=== PATIENT | male | born 1975 | race Hispanic/Latino ===

== ENCOUNTER 2021-06-04 11:35 | Inpatient (IN) | payer MEDICARE, MEDICAID ==
[2021-06-03 11:23] VITALS: BMI 26.2
[2021-06-04] MEDS ORDERED: ceFAZolin 2 GM/DEX 5% 100 ML BAG ONE (12:48)
[2021-06-04] MEDS ORDERED: Ketorolac Tromethamine 30 MG/ML VIAL ONE (12:48)
[2021-06-04] MEDS ORDERED: Acetaminophen 500 MG TAB ONE (12:48)
[2021-06-04 13:21] LABS: #Eosinphils 0.1 thou/uL (0.0-0.7); #Lymphocytes 2.1 thou/uL (1.20-3.40); #Monocytes 0.5 thou/uL (0.11-0.59); #Neutrophils 4.3 thou/uL (1.40-6.50); %Basophils 0.2 % (0.0-1.0); %Eosinophils 1.5 % (0.0-10.0); %Lymphocytes 29.8 % (21.0-51.0); %Monocytes 6.9 % (0.0-10.0); %Neutrophils 61.6 % (42.0-75.0); Hemoglobin 14.1 g/dL (14.0-18.0); Mean Corpuscular HGB CONC 32.7 g/dL (32.0-36.0); Mean Corpuscular Hemoglobin 31.6 pg (27.0-31.0); Mean Corpuscular Volume 96.4 fL (78.0-98.0); RBC Distribution Width 11.6 % (11.5-14.5); Red Blood Cell (RBC) Count 4.46 mill/uL (4.70-6.10); White Blood Cell (WBC) Count 7.1 thou/uL (4.8-10.8)
[2021-06-04 13:38] LABS: Mean Platelet Volume 11.5 fL (7.4-10.4); Platelet Count 118 thou/uL (130-400); Platelet Morphology Comment Appears Adequate; RBC Morphology Normal
[2021-06-04 13:44] LABS: Anion Gap 12 mmol/L (10-20); BUN (Urea Nitrogen) 16 mg/dL (8.9-20.6); Calc. Creatinine Clearance 111 mL/min (70-130); Calcium 9.6 mg/dL (7.8-10.44); Carbon Dioxide 28 mmol/L (22-29); Chloride 103 mmol/L (98-107); Glucose 104 mg/dL (70-105); Potassium 4.1 mmol/L (3.5-5.1); Sodium 139 mmol/L (136-145)
[2021-06-04] MEDS ORDERED: EPINEPHrine 1 MG/ML AMP ONE (13:50)
[2021-06-04] MEDS ORDERED: Fentanyl 100 MCG/2 ML VIAL ONE ×2 (13:50→14:55)
[2021-06-04] MEDS ORDERED: Bupivacaine 0.25% HCL 30 ML VIAL ONE (13:50)
[2021-06-04] MEDS ORDERED: SUGAMMADEX SODIUM 200 MG/2 ML VIAL ONE (13:58)
[2021-06-04] MEDS ORDERED: Dexamethasone 20 MG/5 ML VIAL ONE (13:59)
[2021-06-04] MEDS ORDERED: Ondansetron PF 4 MG/2 ML Vial ONE (13:59)
[2021-06-04] MEDS ORDERED: PROPOFOL 200 MG/20 ML VIAL ONE (13:59)
[2021-06-04] MEDS ORDERED: Rocuronium Bromide 10 MG/ML (10ML VIAL) ONE (13:59)
[2021-06-04] MEDS ORDERED: ePHEDrine 50 MG/ML VIAL ONE (13:59)
[2021-06-04] MEDS ORDERED: Lidocaine 1% PF 5 ML VIAL ONE (13:59)
[2021-06-04] MEDS ORDERED: Glycopyrrolate 0.2 MG/ML 5 ML SYRINGE ONE (13:59)
[2021-06-04] MEDS ORDERED: Promethazine HCl 25 MG/ML VIAL IM PRN ×2 (16:20→16:30)
[2021-06-04] MEDS ORDERED: Ondansetron HCl/PF 4 MG/2 ML Vial IVP PRN (16:20)
[2021-06-04] MEDS ORDERED: Promethazine HCl 25 MG/ML VIAL IVPB PRN (16:20)
[2021-06-04] MEDS ORDERED: Mag-Al 1200 mg/1200 mg/30 ML UDCUP PO PRN (16:30)
[2021-06-04] MEDS ORDERED: Calcium Carbonate 500 MG ChewTAB PO PRN (16:30)
[2021-06-04] MEDS ORDERED: Ondansetron PF 4 MG/2 ML Vial IVP PRN (16:30)
[2021-06-04] MEDS ORDERED: Dextrose 5% in Water 1,000 ML IV PRN (16:30)
[2021-06-04] MEDS ORDERED: Dextrose 50% Abboject 50 ML SYRINGE SLOW IVP PRN (16:30)
[2021-06-04] MEDS ORDERED: hydrALAZINE 20 MG/ML VIAL SLOW IVP PRN (16:30)
[2021-06-04] MEDS ORDERED: Morphine 4 MG/ML VIAL SLOW IVP PRN (17:03)
[2021-06-04] MEDS: Baclofen 10 MG TAB PO SCH ×3 (19:07→22:26)
[2021-06-04] MEDS: D5 1/2 NS w/20 mEq KCL 1,000 ML IV SCH (19:07)
[2021-06-04] MEDS ORDERED: Phenytoin 50 MG Chewable Tablet PO SCH (21:00)
[2021-06-04] MEDS ORDERED: PHENobarbital 32.4 MG TAB PO SCH ×2 (21:00→23:45)
[2021-06-04] MEDS: Famotidine/PF 20 mg/2ml Vial SLOW IVP SCH (21:03)
[2021-06-05] MEDS: Baclofen 10 MG TAB PO SCH ×4 (01:37→21:57)
[2021-06-05 05:28] LABS: ALT (SGPT) 74 U/L (8-55); AST (SGOT) 93 U/L (5-34); Albumin 3.4 g/dL (3.5-5.0); Alkaline Phosphatase 119 U/L (40-110); Anion Gap 12 mmol/L (10-20); BUN (Urea Nitrogen) 16 mg/dL (8.9-20.6); Bilirubin, Total 0.5 mg/dL (0.2-1.2); Calc. Creatinine Clearance 113 mL/min (70-130); Calcium 8.6 mg/dL (7.8-10.44); Carbon Dioxide 22 mmol/L (22-29); Chloride 106 mmol/L (98-107); Globulin 2.8 g/dL (2.4-3.5); Glucose 163 mg/dL (70-105); Potassium 4.3 mmol/L (3.5-5.1); Protein, Total 6.2 g/dL (6.0-8.3); Sodium 136 mmol/L (136-145)
[2021-06-05 05:31] LABS: #Monocytes 0.9 thou/uL (0.11-0.59); #Neutrophils 12.2 thou/uL (1.40-6.50); %Basophils 0.3 % (0.0-1.0); %Lymphocytes 6.8 % (21.0-51.0); %Neutrophils 86.9 % (42.0-75.0); Hemoglobin 11.5 g/dL (14.0-18.0); Mean Corpuscular HGB CONC 33.8 g/dL (32.0-36.0); Mean Corpuscular Hemoglobin 32.7 pg (27.0-31.0); Mean Corpuscular Volume 96.7 fL (78.0-98.0); Mean Platelet Volume 11.9 fL (7.4-10.4); Platelet Count 107 thou/uL (130-400); RBC Distribution Width 11.4 % (11.5-14.5); Red Blood Cell (RBC) Count 3.53 mill/uL (4.70-6.10); White Blood Cell (WBC) Count 14.1 thou/uL (4.8-10.8)
[2021-06-05] MEDS: D5 1/2 NS w/20 mEq KCL 1,000 ML IV SCH ×3 (05:33→18:05)
[2021-06-05] MEDS ORDERED: D5 1/2 NS w/20 mEq KCL 1,000 ML IV SCH (07:45)
[2021-06-05] MEDS ORDERED: Lisinopril 5 MG TAB PO SCH (09:00)
[2021-06-05] MEDS: Polyethylene Glycol 3350 17 GM Packet PO SCH (09:15)
[2021-06-05] MEDS: Famotidine/PF 20 mg/2ml Vial SLOW IVP SCH ×2 (09:16→21:18)
[2021-06-05] MEDS: PHENobarbital 32.4 MG TAB PO SCH ×4 (09:17→21:57)
[2021-06-05 13:15] LABS: #Lymphocytes 1.1 thou/uL (1.20-3.40); #Monocytes 0.9 thou/uL (0.11-0.59); #Neutrophils 9.4 thou/uL (1.40-6.50); %Basophils 0.4 % (0.0-1.0); %Lymphocytes 9.4 % (21.0-51.0); %Neutrophils 82.2 % (42.0-75.0); Mean Corpuscular HGB CONC 33.4 g/dL (32.0-36.0); Mean Corpuscular Hemoglobin 32.7 pg (27.0-31.0); Mean Corpuscular Volume 97.9 fL (78.0-98.0); Mean Platelet Volume 12.2 fL (7.4-10.4); Platelet Count 96 thou/uL (130-400); RBC Distribution Width 11.4 % (11.5-14.5); Red Blood Cell (RBC) Count 3.35 mill/uL (4.70-6.10); White Blood Cell (WBC) Count 11.4 thou/uL (4.8-10.8)
[2021-06-06] MEDS: D5 1/2 NS w/20 mEq KCL 1,000 ML IV SCH (04:49)
[2021-06-06 06:47] LABS: #Lymphocytes 1.1 thou/uL (1.20-3.40); #Monocytes 1.5 thou/uL (0.11-0.59); #Neutrophils 10.7 thou/uL (1.40-6.50); %Basophils 0.2 % (0.0-1.0); %Eosinophils 0.1 % (0.0-10.0); %Lymphocytes 8.5 % (21.0-51.0); %Monocytes 11.1 % (0.0-10.0); %Neutrophils 80.2 % (42.0-75.0); Hemoglobin 11.4 g/dL (14.0-18.0); Mean Corpuscular HGB CONC 35.2 g/dL (32.0-36.0); Mean Corpuscular Hemoglobin 34.1 pg (27.0-31.0); Mean Corpuscular Volume 96.9 fL (78.0-98.0); Mean Platelet Volume 11.9 fL (7.4-10.4); Platelet Count 82 thou/uL (130-400); RBC Distribution Width 11.5 % (11.5-14.5); Red Blood Cell (RBC) Count 3.34 mill/uL (4.70-6.10); White Blood Cell (WBC) Count 13.4 thou/uL (4.8-10.8)
[2021-06-06 06:51] LABS: ALT (SGPT) 71 U/L (8-55); AST (SGOT) 58 U/L (5-34); Albumin 3.4 g/dL (3.5-5.0); Alkaline Phosphatase 115 U/L (40-110); Anion Gap 11 mmol/L (10-20); BUN (Urea Nitrogen) 10 mg/dL (8.9-20.6); Bilirubin, Total 0.7 mg/dL (0.2-1.2); Calc. Creatinine Clearance 116 mL/min (70-130); Calcium 8.7 mg/dL (7.8-10.44); Carbon Dioxide 21 mmol/L (22-29); Chloride 104 mmol/L (98-107); Globulin 3.2 g/dL (2.4-3.5); Glucose 146 mg/dL (70-105); Potassium 3.9 mmol/L (3.5-5.1); Protein, Total 6.6 g/dL (6.0-8.3); Sodium 132 mmol/L (136-145)
[2021-06-06] MEDS: Famotidine/PF 20 mg/2ml Vial SLOW IVP SCH (07:48)
[2021-06-06] MEDS: PHENobarbital 32.4 MG TAB PO SCH (08:59)
[2021-06-06] MEDS: Baclofen 10 MG TAB PO SCH (09:00)
[2021-06-06] MEDS: Polyethylene Glycol 3350 17 GM Packet PO SCH (09:00)
[2021-06-06 12:06] VITALS: BP 119/76; TEMP 98.5
== END 2021-06-06 10:50 | disposition home or self-care (01) | DRG 417 ==
LOC: SDC 11:35 → SURG A 16:15 → OBSVTOIN 06-06 10:41
PROVIDERS: ADMIT Specialist; ATTEND Specialist
PROC: 0FT44ZZ Resection of Gallbladder, Percutaneous Endoscopic Approach (ICD-10-PCS; principal; 2021-06-04)
PROC: 0W3P4ZZ Control Bleeding in Gastrointestinal Tract, Percutaneous Endoscopic Approach (ICD-10-PCS; 2021-06-04)
DX: K80.20 Calculus of gallbladder without cholecystitis without obstruction (principal); K85.10 Biliary acute pancreatitis without necrosis or infection; K76.89 Other specified diseases of liver; Z88.1 Allergy status to other antibiotic agents; Z88.8 Allergy status to other drugs, medicaments and biological substances
CPT/HCPCS: 36415; 80048; 80053; 85025; 88304; 96374; 96375; G0378; J0171; J1100; J1885; J2270; J2405; J2704; J3010; J3480; J3490; S0020; S0028

== ENCOUNTER 2021-06-07 06:15 | Inpatient (IN) | payer MEDICARE, MEDICAID ==
[2021-06-07] MEDS ORDERED: Ondansetron PF 4 MG/2 ML Vial IVP PRN (11:00)
[2021-06-07 13:16] LABS: #Lymphocytes 0.9 thou/uL (1.20-3.40); #Monocytes 0.9 thou/uL (0.11-0.59); #Neutrophils 14.2 thou/uL (1.40-6.50); %Basophils 0.1 % (0.0-1.0); %Eosinophils 0.1 % (0.0-10.0); %Lymphocytes 5.8 % (21.0-51.0); %Monocytes 5.6 % (0.0-10.0); %Neutrophils 88.4 % (42.0-75.0); Mean Corpuscular HGB CONC 33.8 g/dL (32.0-36.0); Mean Corpuscular Hemoglobin 32.4 pg (27.0-31.0); Mean Corpuscular Volume 95.8 fL (78.0-98.0); Mean Platelet Volume 11.8 fL (7.4-10.4); Platelet Count 93 thou/uL (130-400); RBC Distribution Width 11.4 % (11.5-14.5); Red Blood Cell (RBC) Count 3.07 mill/uL (4.70-6.10); White Blood Cell (WBC) Count 16.1 thou/uL (4.8-10.8)
[2021-06-07] MEDS: Piperacillin/Tazobactam 3.375 GM in Sodium Chloride 0.9% 100 ML IVPB SCH ×2 (14:41→21:35)
[2021-06-07 17:01] VITALS: BMI 26.2
[2021-06-07 19:09] LABS: Hemoglobin 9.3 g/dL (14.0-18.0)
[2021-06-07] MEDS ORDERED: Pantoprazole 40 MG VIAL IVP SCH (19:45)
[2021-06-07] MEDS: Phenytoin 50 MG Chewable Tablet PER TUBE SCH (20:44)
[2021-06-07] MEDS: PHENobarbital 32.4 MG TAB PER TUBE SCH (20:48)
[2021-06-07] MEDS ORDERED: Phenytoin 50 MG Chewable Tablet PER TUBE SCH (21:00)
[2021-06-08 01:59] LABS: SARS-CoV-2 NAA Rapid Test Not Detected (NotDetected)
[2021-06-08] MEDS: Piperacillin/Tazobactam 3.375 GM in Sodium Chloride 0.9% 100 ML IVPB SCH ×3 (05:53→21:38)
[2021-06-08 06:27] LABS: #Eosinphils 0.1 thou/uL (0.0-0.7); #Lymphocytes 1.3 thou/uL (1.20-3.40); #Monocytes 0.7 thou/uL (0.11-0.59); #Neutrophils 6.3 thou/uL (1.40-6.50); %Basophils 0.2 % (0.0-1.0); %Eosinophils 1.3 % (0.0-10.0); %Lymphocytes 15.7 % (21.0-51.0); %Monocytes 7.9 % (0.0-10.0); %Neutrophils 74.8 % (42.0-75.0); Hemoglobin 8.9 g/dL (14.0-18.0); Mean Corpuscular HGB CONC 34.5 g/dL (32.0-36.0); Mean Corpuscular Hemoglobin 33.2 pg (27.0-31.0); Mean Corpuscular Volume 96.3 fL (78.0-98.0); Mean Platelet Volume 10.8 fL (7.4-10.4); Platelet Count 100 thou/uL (130-400); RBC Distribution Width 11.3 % (11.5-14.5); Red Blood Cell (RBC) Count 2.68 mill/uL (4.70-6.10); White Blood Cell (WBC) Count 8.5 thou/uL (4.8-10.8)
[2021-06-08 06:41] LABS: Anion Gap 12 mmol/L (10-20); BUN (Urea Nitrogen) 13 mg/dL (8.9-20.6); Calc. Creatinine Clearance 127 mL/min (70-130); Calcium 8.5 mg/dL (7.8-10.44); Carbon Dioxide 21 mmol/L (22-29); Chloride 108 mmol/L (98-107); Glucose 107 mg/dL (70-105); Potassium 3.6 mmol/L (3.5-5.1); Sodium 137 mmol/L (136-145)
[2021-06-08] MEDS: Vancomycin 1 GM in Premix Bag 1 BAG IVPB SCH ×2 (08:23→16:23)
[2021-06-08] MEDS: Baclofen 10 MG TAB PO SCH ×4 (08:23→21:17)
[2021-06-08] MEDS: Phenytoin 50 MG Chewable Tablet PER TUBE SCH ×2 (08:27→21:17)
[2021-06-08] MEDS ORDERED: Lisinopril 5 MG TAB PER TUBE SCH (09:00)
[2021-06-08] MEDS ORDERED: Non-Formulary Item 1 EACH (Baclofen [Baclofen] 20 MG Tablet) PO SCH (09:00)
[2021-06-08] MEDS: Pantoprazole 40 MG VIAL IVP SCH (09:11)
[2021-06-08] MEDS: PHENobarbital 32.4 MG TAB PER TUBE SCH ×2 (09:11→21:17)
[2021-06-08 09:36] LABS: ALT (SGPT) 35 U/L (8-55); AST (SGOT) 23 U/L (5-34); Albumin 2.9 g/dL (3.5-5.0); Alkaline Phosphatase 88 U/L (40-110); Bilirubin, Direct 0.3 mg/dL (0.1-0.3); Bilirubin, Total 0.5 mg/dL (0.2-1.2); Protein, Total 5.9 g/dL (6.0-8.3)
[2021-06-08] MEDS ORDERED: Diazepam 5 MG TAB PO PRN (20:45)
[2021-06-09] MEDS: Vancomycin 1 GM in Premix Bag 1 BAG IVPB SCH ×2 (02:07→09:21)
[2021-06-09] MEDS: Piperacillin/Tazobactam 3.375 GM in Sodium Chloride 0.9% 100 ML IVPB SCH ×3 (05:35→21:44)
[2021-06-09 07:57] LABS: Anion Gap 13 mmol/L (10-20); BUN (Urea Nitrogen) 7 mg/dL (8.9-20.6); Calc. Creatinine Clearance 135 mL/min (70-130); Calcium 8.1 mg/dL (7.8-10.44); Carbon Dioxide 19 mmol/L (22-29); Chloride 108 mmol/L (98-107); Glucose 112 mg/dL (70-105); Sodium 137 mmol/L (136-145)
[2021-06-09 08:07] LABS: Vancomycin, Trough 29.8 ug/mL
[2021-06-09] MEDS: Polyethylene Glycol 3350 17 GM Packet PO SCH (08:26)
[2021-06-09] MEDS: Phenytoin 50 MG Chewable Tablet PER TUBE SCH ×3 (08:27→20:08)
[2021-06-09] MEDS: Baclofen 10 MG TAB PO SCH ×4 (08:27→20:02)
[2021-06-09 08:38] LABS: #Eosinphils 0.3 thou/uL (0.0-0.7); #Lymphocytes 1.4 thou/uL (1.20-3.40); #Monocytes 0.8 thou/uL (0.11-0.59); #Neutrophils 4.9 thou/uL (1.40-6.50); %Basophils 0.4 % (0.0-1.0); %Eosinophils 4.2 % (0.0-10.0); %Lymphocytes 18.4 % (21.0-51.0); %Monocytes 11.2 % (0.0-10.0); %Neutrophils 65.8 % (42.0-75.0); Hemoglobin 9.2 g/dL (14.0-18.0); Mean Corpuscular HGB CONC 34.6 g/dL (32.0-36.0); Mean Corpuscular Volume 95.3 fL (78.0-98.0); Mean Platelet Volume 9.9 fL (7.4-10.4); Platelet Count 146 thou/uL (130-400); RBC Distribution Width 11.4 % (11.5-14.5); White Blood Cell (WBC) Count 7.5 thou/uL (4.8-10.8)
[2021-06-09] MEDS: Pantoprazole 40 MG VIAL IVP SCH (09:21)
[2021-06-09] MEDS: PHENobarbital 32.4 MG TAB PER TUBE SCH ×2 (09:21→21:44)
[2021-06-09] MEDS ORDERED: Potassium Chloride 20 MEQ TAB PER TUBE SCH (09:45)
[2021-06-09] MEDS ORDERED: Electrolyte Replacement Protocol 1 EACH FS SCH (09:45)
[2021-06-09 10:03] LABS: Magnesium 1.8 mg/dL (1.6-2.6)
[2021-06-09] MEDS ORDERED: Magnesium 2 GM/50 ML 2 GM in Premix Bag 1 BAG IVPB SCH (13:15)
[2021-06-09] MEDS: Famotidine 20 MG TAB PO SCH (20:03)
[2021-06-10] MEDS: Vancomycin 1 GM in Premix Bag 1 BAG IVPB SCH ×2 (06:24→17:44)
[2021-06-10] MEDS: Piperacillin/Tazobactam 3.375 GM in Sodium Chloride 0.9% 100 ML IVPB SCH ×3 (08:12→21:21)
[2021-06-10] MEDS: Polyethylene Glycol 3350 17 GM Packet PO SCH (09:05)
[2021-06-10] MEDS: Pantoprazole 40 MG GRANULES PACKET PER TUBE SCH (09:05)
[2021-06-10] MEDS: Famotidine 20 MG TAB PO SCH ×2 (09:06→21:21)
[2021-06-10] MEDS: Baclofen 10 MG TAB PO SCH ×4 (09:06→21:21)
[2021-06-10] MEDS: PHENobarbital 32.4 MG TAB PER TUBE SCH ×2 (09:52→21:20)
[2021-06-10 09:59] LABS: Anion Gap 11 mmol/L (10-20); BUN (Urea Nitrogen) 7 mg/dL (8.9-20.6); Calc. Creatinine Clearance 137 mL/min (70-130); Calcium 8.4 mg/dL (7.8-10.44); Carbon Dioxide 24 mmol/L (22-29); Chloride 108 mmol/L (98-107); Glucose 127 mg/dL (70-105); Potassium 3.5 mmol/L (3.5-5.1); Sodium 139 mmol/L (136-145)
[2021-06-10] MEDS: Acetaminophen 325 MG TAB PER TUBE PRN (17:48)
[2021-06-10] MEDS: Phenytoin 50 MG Chewable Tablet PER TUBE SCH (21:20)
[2021-06-11 05:17] LABS: Vancomycin, Trough 21.5 ug/mL
[2021-06-11] MEDS: Vancomycin 1 GM in Premix Bag 1 BAG IVPB SCH (05:51)
[2021-06-11] MEDS: Piperacillin/Tazobactam 3.375 GM in Sodium Chloride 0.9% 100 ML IVPB SCH ×3 (07:11→20:33)
[2021-06-11 09:03] LABS: Potassium 3.4 mmol/L (3.5-5.1)
[2021-06-11] MEDS ORDERED: Potassium Chloride 20 MEQ TAB PER TUBE SCH (09:30)
[2021-06-11] MEDS: Phenytoin 50 MG Chewable Tablet PER TUBE SCH ×2 (10:05→20:36)
[2021-06-11] MEDS: Polyethylene Glycol 3350 17 GM Packet PO SCH (10:05)
[2021-06-11] MEDS: Baclofen 10 MG TAB PO SCH ×4 (10:06→20:36)
[2021-06-11] MEDS: Famotidine 20 MG TAB PO SCH ×2 (10:06→20:36)
[2021-06-11] MEDS: Pantoprazole 40 MG GRANULES PACKET PER TUBE SCH (10:06)
[2021-06-11] MEDS: PHENobarbital 32.4 MG TAB PER TUBE SCH ×2 (10:21→20:48)
[2021-06-11] MEDS: Vancomycin HCl 750 MG in Sodium Chloride 0.9% 250 ML 250 ML IVPB SCH (17:43)
[2021-06-11] MEDS: Acetaminophen 325 MG TAB PER TUBE PRN (20:39)
[2021-06-12] MEDS: Vancomycin HCl 750 MG in Sodium Chloride 0.9% 250 ML 250 ML IVPB SCH (04:43)
[2021-06-12] MEDS: Piperacillin/Tazobactam 3.375 GM in Sodium Chloride 0.9% 100 ML IVPB SCH (05:33)
[2021-06-12] MEDS: Phenytoin 50 MG Chewable Tablet PER TUBE SCH ×2 (08:13→21:11)
[2021-06-12] MEDS: Famotidine 20 MG TAB PO SCH ×2 (08:14→21:11)
[2021-06-12] MEDS: Polyethylene Glycol 3350 17 GM Packet PO SCH (08:14)
[2021-06-12] MEDS: Pantoprazole 40 MG GRANULES PACKET PER TUBE SCH (08:14)
[2021-06-12] MEDS: Baclofen 10 MG TAB PO SCH ×4 (08:14→21:12)
[2021-06-12] MEDS: PHENobarbital 32.4 MG TAB PER TUBE SCH ×2 (09:20→21:11)
[2021-06-13] MEDS: Baclofen 10 MG TAB PO SCH ×3 (09:30→21:14)
[2021-06-13] MEDS: Polyethylene Glycol 3350 17 GM Packet PO SCH (09:55)
[2021-06-13] MEDS: Acetaminophen 325 MG TAB PER TUBE PRN (09:55)
[2021-06-13] MEDS: Famotidine 20 MG TAB PO SCH ×2 (09:55→21:14)
[2021-06-13] MEDS: Phenytoin 50 MG Chewable Tablet PER TUBE SCH ×2 (09:55→21:13)
[2021-06-13] MEDS: Pantoprazole 40 MG GRANULES PACKET PER TUBE SCH (09:55)
[2021-06-13] MEDS ORDERED: Iopamidol 370 76% 50 ML VIAL FS ONE (10:04)
[2021-06-13] MEDS ORDERED: Iopamidol-370 76% 500 ML 1 ML ONE (10:04)
[2021-06-13 10:10] LABS: #Eosinphils 0.1 thou/uL (0.0-0.7); #Lymphocytes 1.5 thou/uL (1.20-3.40); #Monocytes 1.4 thou/uL (0.11-0.59); #Neutrophils 10.1 thou/uL (1.40-6.50); %Basophils 0.4 % (0.0-1.0); %Eosinophils 0.6 % (0.0-10.0); %Lymphocytes 11.2 % (21.0-51.0); %Neutrophils 76.9 % (42.0-75.0); Hemoglobin 10.4 g/dL (14.0-18.0); Mean Corpuscular HGB CONC 33.2 g/dL (32.0-36.0); Mean Corpuscular Hemoglobin 32.9 pg (27.0-31.0); Mean Corpuscular Volume 98.9 fL (78.0-98.0); Mean Platelet Volume 8.4 fL (7.4-10.4); Platelet Count 319 thou/uL (130-400); RBC Distribution Width 12.5 % (11.5-14.5); Red Blood Cell (RBC) Count 3.15 mill/uL (4.70-6.10); White Blood Cell (WBC) Count 13.1 thou/uL (4.8-10.8)
[2021-06-13 10:30] LABS: ALT (SGPT) 39 U/L (8-55); AST (SGOT) 26 U/L (5-34); Albumin 3.3 g/dL (3.5-5.0); Alkaline Phosphatase 104 U/L (40-110); Anion Gap 13 mmol/L (10-20); BUN (Urea Nitrogen) 19 mg/dL (8.9-20.6); Bilirubin, Total 0.3 mg/dL (0.2-1.2); Calc. Creatinine Clearance 92 mL/min (70-130); Calcium 8.7 mg/dL (7.8-10.44); Carbon Dioxide 24 mmol/L (22-29); Chloride 116 mmol/L (98-107); Globulin 3.9 g/dL (2.4-3.5); Glucose 156 mg/dL (70-105); Potassium 3.6 mmol/L (3.5-5.1); Protein, Total 7.2 g/dL (6.0-8.3); Sodium 149 mmol/L (136-145)
[2021-06-13] MEDS: PHENobarbital 32.4 MG TAB PER TUBE SCH ×2 (12:31→21:09)
[2021-06-13] MEDS ORDERED: Piperacillin/Tazobactam 3.375 GM in Sodium Chloride 0.9% 100 ML IVPB SCH ×2 (14:00→15:00)
[2021-06-13] MEDS: Vancomycin 1 GM in Premix Bag 1 BAG IVPB SCH (15:01)
[2021-06-13] MEDS: Dextrose 5%-Lactated Ringers 1,000 ML IV SCH ×2 (15:01→21:08)
[2021-06-13] MEDS ORDERED: Vancomycin HCl 1 GM in Sodium Chloride 0.9% 250 ML 250 ML IVPB SCH (21:00)
[2021-06-13] MEDS ORDERED: Cefepime 1 GM in Sodium Chloride 0.9% 100 ML IVPB SCH (21:00)
[2021-06-13] MEDS: Piperacillin/Tazobactam 3.375 GM in Sodium Chloride 0.9% 100 ML IVPB SCH (22:47)
[2021-06-14] MEDS: Vancomycin 1 GM in Premix Bag 1 BAG IVPB SCH ×2 (03:20→14:39)
[2021-06-14 06:14] LABS: #Eosinphils 0.2 thou/uL (0.0-0.7); #Lymphocytes 1.2 thou/uL (1.20-3.40); #Neutrophils 8.7 thou/uL (1.40-6.50); %Basophils 0.2 % (0.0-1.0); %Eosinophils 1.7 % (0.0-10.0); %Lymphocytes 10.4 % (21.0-51.0); %Monocytes 8.8 % (0.0-10.0); %Neutrophils 78.9 % (42.0-75.0); Hemoglobin 9.7 g/dL (14.0-18.0); Mean Corpuscular Hemoglobin 32.7 pg (27.0-31.0); Mean Corpuscular Volume 99.1 fL (78.0-98.0); Mean Platelet Volume 8.7 fL (7.4-10.4); Platelet Count 281 thou/uL (130-400); RBC Distribution Width 12.3 % (11.5-14.5); Red Blood Cell (RBC) Count 2.96 mill/uL (4.70-6.10)
[2021-06-14 06:35] LABS: ALT (SGPT) 35 U/L (8-55); AST (SGOT) 30 U/L (5-34); Alkaline Phosphatase 98 U/L (40-110); Anion Gap 11 mmol/L (10-20); BUN (Urea Nitrogen) 19 mg/dL (8.9-20.6); Bilirubin, Total 0.3 mg/dL (0.2-1.2); Calc. Creatinine Clearance 91 mL/min (70-130); Calcium 8.2 mg/dL (7.8-10.44); Carbon Dioxide 24 mmol/L (22-29); Chloride 110 mmol/L (98-107); Globulin 3.7 g/dL (2.4-3.5); Glucose 151 mg/dL (70-105); Potassium 3.8 mmol/L (3.5-5.1); Protein, Total 6.7 g/dL (6.0-8.3); Sodium 141 mmol/L (136-145)
[2021-06-14] MEDS: Piperacillin/Tazobactam 3.375 GM in Sodium Chloride 0.9% 100 ML IVPB SCH ×3 (08:28→23:56)
[2021-06-14] MEDS: Famotidine 20 MG TAB PO SCH ×2 (08:29→23:40)
[2021-06-14] MEDS: Baclofen 10 MG TAB PO SCH ×3 (08:29→23:41)
[2021-06-14] MEDS: Pantoprazole 40 MG GRANULES PACKET PER TUBE SCH (08:29)
[2021-06-14] MEDS: Phenytoin 50 MG Chewable Tablet PER TUBE SCH ×2 (08:29→23:40)
[2021-06-14] MEDS: Polyethylene Glycol 3350 17 GM Packet PO SCH (08:30)
[2021-06-14] MEDS: PHENobarbital 32.4 MG TAB PER TUBE SCH ×2 (09:07→23:40)
[2021-06-14] MEDS: Acetaminophen 325 MG TAB PER TUBE PRN (23:40)
[2021-06-15 01:46] LABS: Vancomycin, Trough 25.5 ug/mL
[2021-06-15] MEDS: Piperacillin/Tazobactam 3.375 GM in Sodium Chloride 0.9% 100 ML IVPB SCH ×3 (06:14→23:17)
[2021-06-15 08:34] LABS: #Eosinphils 0.3 thou/uL (0.0-0.7); #Lymphocytes 1.5 thou/uL (1.20-3.40); #Monocytes 0.8 thou/uL (0.11-0.59); #Neutrophils 6.5 thou/uL (1.40-6.50); %Basophils 0.4 % (0.0-1.0); %Eosinophils 3.1 % (0.0-10.0); %Monocytes 8.8 % (0.0-10.0); %Neutrophils 71.7 % (42.0-75.0); Hemoglobin 9.3 g/dL (14.0-18.0); Mean Corpuscular HGB CONC 33.1 g/dL (32.0-36.0); Mean Corpuscular Hemoglobin 32.3 pg (27.0-31.0); Mean Corpuscular Volume 97.7 fL (78.0-98.0); Mean Platelet Volume 9.2 fL (7.4-10.4); Platelet Count 255 thou/uL (130-400); RBC Distribution Width 12.3 % (11.5-14.5); Red Blood Cell (RBC) Count 2.88 mill/uL (4.70-6.10); White Blood Cell (WBC) Count 9.1 thou/uL (4.8-10.8)
[2021-06-15 08:57] LABS: ALT (SGPT) 36 U/L (8-55); AST (SGOT) 27 U/L (5-34); Albumin 2.9 g/dL (3.5-5.0); Alkaline Phosphatase 94 U/L (40-110); Anion Gap 10 mmol/L (10-20); BUN (Urea Nitrogen) 19 mg/dL (8.9-20.6); Bilirubin, Total 0.3 mg/dL (0.2-1.2); Calc. Creatinine Clearance 94 mL/min (70-130); Calcium 8.3 mg/dL (7.8-10.44); Carbon Dioxide 25 mmol/L (22-29); Chloride 109 mmol/L (98-107); Globulin 3.7 g/dL (2.4-3.5); Glucose 129 mg/dL (70-105); Potassium 3.3 mmol/L (3.5-5.1); Protein, Total 6.6 g/dL (6.0-8.3); Sodium 141 mmol/L (136-145)
[2021-06-15] MEDS: PHENobarbital 32.4 MG TAB PER TUBE SCH ×2 (09:12→20:39)
[2021-06-15] MEDS: Famotidine 20 MG TAB PO SCH ×2 (09:15→20:38)
[2021-06-15] MEDS: Baclofen 10 MG TAB PO SCH ×3 (09:16→20:38)
[2021-06-15] MEDS: Phenytoin 50 MG Chewable Tablet PER TUBE SCH ×2 (09:16→20:39)
[2021-06-15] MEDS: Pantoprazole 40 MG GRANULES PACKET PER TUBE SCH (09:16)
[2021-06-15] MEDS: Polyethylene Glycol 3350 17 GM Packet PO SCH (09:49)
[2021-06-15] MEDS ORDERED: Potassium Chloride 20 MEQ TAB PER TUBE SCH (10:15)
[2021-06-15] MEDS ORDERED: Potassium Chloride 20 MEQ TAB PO SCH (10:15)
[2021-06-15 11:44] LABS: SARS-CoV-2 PCR by NAA Not Detected (NotDetected)
[2021-06-15] MEDS: Vancomycin HCl 750 MG in Sodium Chloride 0.9% 250 ML 250 ML IVPB SCH (14:57)
[2021-06-15] MEDS: Acetaminophen 325 MG TAB PER TUBE PRN (20:38)
[2021-06-16] MEDS: Vancomycin HCl 750 MG in Sodium Chloride 0.9% 250 ML 250 ML IVPB SCH ×2 (04:06→15:39)
[2021-06-16 06:14] LABS: #Eosinphils 0.3 thou/uL (0.0-0.7); #Lymphocytes 1.6 thou/uL (1.20-3.40); #Monocytes 0.8 thou/uL (0.11-0.59); #Neutrophils 7.1 thou/uL (1.40-6.50); %Eosinophils 3.5 % (0.0-10.0); %Lymphocytes 15.8 % (21.0-51.0); %Monocytes 8.4 % (0.0-10.0); %Neutrophils 72.2 % (42.0-75.0); Hemoglobin 9.3 g/dL (14.0-18.0); Mean Corpuscular HGB CONC 32.8 g/dL (32.0-36.0); Mean Corpuscular Hemoglobin 32.8 pg (27.0-31.0); Mean Platelet Volume 9.9 fL (7.4-10.4); Platelet Count 250 thou/uL (130-400); RBC Distribution Width 12.4 % (11.5-14.5); Red Blood Cell (RBC) Count 2.84 mill/uL (4.70-6.10); White Blood Cell (WBC) Count 9.8 thou/uL (4.8-10.8)
[2021-06-16 06:41] LABS: Anion Gap 8 mmol/L (10-20); BUN (Urea Nitrogen) 15 mg/dL (8.9-20.6); Calc. Creatinine Clearance 111 mL/min (70-130); Calcium 8.2 mg/dL (7.8-10.44); Carbon Dioxide 26 mmol/L (22-29); Chloride 113 mmol/L (98-107); Glucose 123 mg/dL (70-105); Potassium 3.7 mmol/L (3.5-5.1); Sodium 143 mmol/L (136-145)
[2021-06-16] MEDS: Phenytoin 50 MG Chewable Tablet PER TUBE SCH ×2 (10:10→21:10)
[2021-06-16] MEDS: PHENobarbital 32.4 MG TAB PER TUBE SCH ×2 (10:11→21:10)
[2021-06-16] MEDS: Baclofen 10 MG TAB PO SCH ×2 (10:12→21:09)
[2021-06-16] MEDS: Famotidine 20 MG TAB PO SCH ×2 (10:12→21:08)
[2021-06-16] MEDS: Pantoprazole 40 MG GRANULES PACKET PER TUBE SCH (10:12)
[2021-06-16] MEDS: Polyethylene Glycol 3350 17 GM Packet PO SCH (10:13)
[2021-06-16] MEDS: Piperacillin/Tazobactam 3.375 GM in Sodium Chloride 0.9% 100 ML IVPB SCH ×3 (11:05→18:03)
[2021-06-16] MEDS: Acetaminophen 325 MG TAB PER TUBE PRN ×2 (13:11→18:03)
[2021-06-17 01:23] LABS: Vancomycin, Trough 23.9 ug/mL
[2021-06-17] MEDS: Vancomycin HCl 750 MG in Sodium Chloride 0.9% 250 ML 250 ML IVPB SCH (01:38)
[2021-06-17] MEDS: Piperacillin/Tazobactam 3.375 GM in Sodium Chloride 0.9% 100 ML IVPB SCH (03:28)
[2021-06-17] MEDS: Pantoprazole 40 MG GRANULES PACKET PER TUBE SCH (09:49)
[2021-06-17] MEDS: Polyethylene Glycol 3350 17 GM Packet PO SCH (09:49)
[2021-06-17] MEDS: Phenytoin 50 MG Chewable Tablet PER TUBE SCH ×2 (09:49→20:12)
[2021-06-17] MEDS: Amoxicillin/Potassium Clav 600 mg/5 ml Oral Suspension PO SCH ×2 (09:49→16:41)
[2021-06-17] MEDS: Baclofen 10 MG TAB PO SCH ×2 (09:49→20:11)
[2021-06-17] MEDS: Famotidine 20 MG TAB PO SCH ×2 (09:49→20:11)
[2021-06-17] MEDS: PHENobarbital 32.4 MG TAB PER TUBE SCH ×2 (09:49→20:12)
[2021-06-17] MEDS ORDERED: Vancomycin HCl 500 MG in Sodium Chloride 0.9% 100 ML IVPB SCH (16:00)
[2021-06-18] MEDS: Pantoprazole 40 MG GRANULES PACKET PER TUBE SCH (09:52)
[2021-06-18] MEDS: Baclofen 10 MG TAB PO SCH (09:52)
[2021-06-18] MEDS: Famotidine 20 MG TAB PO SCH (09:52)
[2021-06-18] MEDS: Phenytoin 50 MG Chewable Tablet PER TUBE SCH (09:52)
[2021-06-18] MEDS: Polyethylene Glycol 3350 17 GM Packet PO SCH (09:52)
[2021-06-18] MEDS: PHENobarbital 32.4 MG TAB PER TUBE SCH (09:52)
[2021-06-18] MEDS: Amoxicillin/Potassium Clav 600 mg/5 ml Oral Suspension PO SCH (09:52)
[2021-06-18 12:19] VITALS: BP 99/63; TEMP 98.6
== END 2021-06-18 16:00 | DRG 871 ==
LOC: SURG A 07:44 → 2NO 07:45 → SURG A 06-18 11:18
PROVIDERS: ADMIT Student in an Organized Health Care Education/Training Program; ATTEND Internal Medicine
DX: A41.9 Sepsis, unspecified organism (principal); J69.0 Pneumonitis due to inhalation of food and vomit; R53.2 Functional quadriplegia; D62 Acute posthemorrhagic anemia; E87.1 Hypo-osmolality and hyponatremia; F72 Severe intellectual disabilities; Z20.822 Contact with and (suspected) exposure to COVID-19; D64.9 Anemia, unspecified; J45.909 Unspecified asthma, uncomplicated; G40.909 Epilepsy, unspecified, not intractable, without status epilepticus; G80.9 Cerebral palsy, unspecified; K21.9 Gastro-esophageal reflux disease without esophagitis; M81.0 Age-related osteoporosis without current pathological fracture; E55.9 Vitamin D deficiency, unspecified; Z90.49 Acquired absence of other specified parts of digestive tract; Z88.1 Allergy status to other antibiotic agents; Z88.8 Allergy status to other drugs, medicaments and biological substances; E87.6 Hypokalemia
CPT/HCPCS: 36415; 71045; 71250; 74177; 80048; 80053; 80076; 80202; 82271; 83735; 84132; 85025; 87040; 87086; 87633; 93306; 93970; 94640; C9113; J2543; J3370; J3475; J3490; J7050; J7620; Q9967; U0002; U0003; U0005

== ENCOUNTER 2022-02-01 12:45 | Outpatient (CLI) | payer MEDICARE, MEDICAID ==
[2022-02-01 15:12] LABS: Anion Gap 19 mmol/L (10-20); BUN (Urea Nitrogen) 14 mg/dL (8.9-20.6); Calc. Creatinine Clearance 0 mL/min (70-130); Calcium 9.8 mg/dL (7.8-10.44); Carbon Dioxide 19 mmol/L (22-29); Chloride 103 mmol/L (98-107); Estimated GFR 118; Glucose 87 mg/dL (70-105); Potassium 4.6 mmol/L (3.5-5.1); Sodium 136 mmol/L (136-145)
[2022-02-01 15:15] LABS: Hemoglobin 11.8 g/dL (13.5-17.5); Mean Corpuscular HGB CONC 32.1 g/dL (32.0-36.0); Mean Corpuscular Hemoglobin 29.7 pg (27.0-33.0); Mean Corpuscular Volume 92.7 fl (81.2-95.1); Mean Platelet Volume 13.8 fl (7.4-10.4); Platelet Count 214 10x3/uL (150-450); RBC Distribution Width 15.3 % (11.5-14.5); Red Blood Cell (RBC) Count 3.97 10x6/uL (4.32-5.72); White Blood Cell (WBC) Count 7.9 10x3/uL (3.5-10.5)
== END 2022-02-01 12:46 | disposition home or self-care (01) ==
LOC: LABBT 12:45
PROVIDERS: ATTEND Urology
DX: Z01.818 Encounter for other preprocedural examination (principal); N13.2 Hydronephrosis with renal and ureteral calculous obstruction; F73 Profound intellectual disabilities; G40.909 Epilepsy, unspecified, not intractable, without status epilepticus; G80.0 Spastic quadriplegic cerebral palsy; Z20.822 Contact with and (suspected) exposure to COVID-19
CPT/HCPCS: 80048; 85027; 87077; 87086; 87811; 93005; 93010

== ENCOUNTER 2022-02-04 09:19 | Day surgery (SDC) | payer MEDICARE, MEDICAID ==
[2022-02-02 15:00] VITALS: BMI 24.0
[2022-02-04] MEDS ORDERED: B & O ONE (10:56)
[2022-02-04] MEDS ORDERED: Iopamidol 30 ML ONE (10:57)
[2022-02-04] MEDS ORDERED: Sodium Chloride 0.9% 100 ML ONE (10:59)
[2022-02-04] MEDS ORDERED: cefTRIAXone\\ROCEPHIN 1 GM VIAL ONE (10:59)
[2022-02-04] MEDS ORDERED: Vancomycin 1 GM/200 ML BAG ONE (10:59)
[2022-02-04] MEDS ORDERED: SUGAMMADEX SODIUM 200 MG/2 ML VIAL ONE (12:16)
[2022-02-04] MEDS ORDERED: Fentanyl 100 MCG/2 ML VIAL ONE ×2 (12:16→15:02)
[2022-02-04] MEDS ORDERED: PROPOFOL 200 MG/20 ML VIAL ONE (12:30)
[2022-02-04] MEDS ORDERED: Rocuronium Bromide 10 MG/ML (10ML VIAL) ONE (12:30)
[2022-02-04] MEDS ORDERED: Dexamethasone 20 MG/5 ML VIAL ONE (12:30)
[2022-02-04] MEDS ORDERED: Glycopyrrolate 0.2 MG/ML 5 ML SYRINGE ONE (12:30)
[2022-02-04] MEDS ORDERED: Ondansetron PF 4 MG/2 ML Vial ONE (12:30)
[2022-02-04] MEDS ORDERED: PHENYLEPHRINE-NS 100 MCG/ML 10 ML SYRINGE ONE (12:30)
[2022-02-04] MEDS ORDERED: Lidocaine 1% PF 5 ML VIAL ONE (12:30)
[2022-02-04] MEDS ORDERED: Oxybutynin 5 MG TAB ONE (15:45)
== END 2022-02-04 19:05 | disposition home or self-care (01) ==
LOC: SDC 09:19
PROVIDERS: ATTEND Urology
PROC: 0TC38ZZ Extirpation of Matter from Right Kidney Pelvis, Via Natural or Artificial Opening Endoscopic (ICD-10-PCS; principal; 2022-02-04)
PROC: 0TC68ZZ Extirpation of Matter from Right Ureter, Via Natural or Artificial Opening Endoscopic (ICD-10-PCS; 2022-02-04)
PROC: 0T768DZ Dilation of Right Ureter with Intraluminal Device, Via Natural or Artificial Opening Endoscopic (ICD-10-PCS; 2022-02-04)
DX: N13.2 Hydronephrosis with renal and ureteral calculous obstruction (principal); K21.9 Gastro-esophageal reflux disease without esophagitis; Z79.899 Other long term (current) drug therapy; Z88.1 Allergy status to other antibiotic agents; Z88.8 Allergy status to other drugs, medicaments and biological substances
CPT/HCPCS: 52356; 76000; 82365; C1713; C2617; 88300; J0696; J1100; J2405; J2704; J3010; J3370; J3490; Q9967

== ENCOUNTER 2022-08-17 06:27 | Day surgery (SDC) | payer MEDICARE, MEDICAID ==
[2022-08-16 11:57] VITALS: BMI 22.1
== END 2022-08-17 07:30 | disposition short-term general hospital (02) ==
LOC: SDC 06:27
PROVIDERS: ATTEND Internal Medicine Gastroenterology
DX: Z12.11 Encounter for screening for malignant neoplasm of colon (principal); Z53.8 Procedure and treatment not carried out for other reasons; Z79.899 Other long term (current) drug therapy; Z88.1 Allergy status to other antibiotic agents; Z88.8 Allergy status to other drugs, medicaments and biological substances

== ENCOUNTER 2024-06-24 23:41 | Inpatient (IN) | payer MEDICARE, MEDICAID ==
[2024-06-25] MEDS ORDERED: PROPOFOL 40 ML ONE (00:52)
[2024-06-25] MEDS ORDERED: fentaNYL PF 100 MCG/2 ML SYRINGE ONE (00:52)
[2024-06-25 00:53] LABS: #Basophils 0.03 10x3/uL (0.0-0.2); #Eosinophils Less than 0.03 10x3/uL (0.0-0.7); %Basophils 0.3 % (0.0-1.0); %Eosinophils 0.1 % (0.0-10.0); %Lymphocytes 12.9 % (21.0-51.0); %Monocytes 11.3 % (0.0-10.0); Hematocrit 43.8 % (42.0-52.0); Hemoglobin 14.4 g/dL (14.0-18.0); Mean Corpuscular HGB CONC 32.9 g/dL (32.0-36.0); Mean Corpuscular Hemoglobin 31.4 pg (27.0-31.0); Mean Corpuscular Volume 95.6 fL (78.0-98.0); Mean Platelet Volume 14.3 fL (7.4-10.4); Platelet Count 99 10x3/uL (130-400); RBC Distribution Width 12.1 % (11.5-14.5); Red Blood Cell (RBC) Count 4.58 mill/uL (4.70-6.10)
[2024-06-25 00:55] LABS: ALT (SGPT) 42 U/L (8-55); AST (SGOT) 39 U/L (5-34); Albumin 3.3 g/dL (3.5-5.0); Alkaline Phosphatase 94 U/L (40-110); Anion Gap 15 mmol/L (10-20); BUN (Urea Nitrogen) 22 mg/dL (8.9-20.6); Bilirubin, Total 0.8 mg/dL (0.2-1.2); Calc. Creatinine Clearance 0 mL/min (70-130); Calcium 8.2 mg/dL (7.8-10.44); Carbon Dioxide 20 mmol/L (22-29); Chloride 112 mmol/L (98-107); Estimated GFR 108; Globulin 3.8 g/dL (2.4-3.5); Glucose 129 mg/dL (70-105); Potassium 3.6 mmol/L (3.5-5.1); Protein, Total 7.1 g/dL (6.0-8.3); Sodium 143 mmol/L (136-145)
[2024-06-25] MEDS ORDERED: Iopamidol 15 ML ONE (00:56)
[2024-06-25] MEDS ORDERED: Sodium Chloride 0.9% 100 ML ONE (01:08)
[2024-06-25] MEDS ORDERED: Piperacillin/Tazobactam 4.5 GM VIAL ONE (01:08)
[2024-06-25] MEDS ORDERED: Ipratropium/Albuterol 3 ML NEB NEB PRN (01:19)
[2024-06-25] MEDS ORDERED: Ondansetron PF 4 MG/2 ML Vial IVP PRN (01:25)
[2024-06-25] MEDS ORDERED: traMADol HCl 50 MG TAB PER TUBE PRN (01:25)
[2024-06-25] MEDS ORDERED: Bisacodyl 5 MG TAB PO PRN (01:25)
[2024-06-25] MEDS ORDERED: PHENYLEPHRINE-NS 100 MCG/ML 10 ML SYRINGE ONE (01:28)
[2024-06-25] MEDS ORDERED: Lidocaine 1% PF 5 ML VIAL ONE (01:30)
[2024-06-25] MEDS ORDERED: ePHEDrine Sulfate 50 MG/10 ML VIAL ONE (01:36)
[2024-06-25] MEDS ORDERED: Naloxone HCl 0.4 mg/ml Vial ONE (01:54)
[2024-06-25 03:56] LABS: #Basophils Less than 0.03 10x3/uL (0.0-0.2); #Eosinophils Less than 0.03 10x3/uL (0.0-0.7); %Basophils 0.2 % (0.0-1.0); %Eosinophils 0.1 % (0.0-10.0); %Lymphocytes 14.4 % (21.0-51.0); %Monocytes 12.2 % (0.0-10.0); %Neutrophils 72.9 % (42.0-75.0); Hematocrit 41.5 % (42.0-52.0); Hemoglobin 13.5 g/dL (14.0-18.0); Mean Corpuscular HGB CONC 32.5 g/dL (32.0-36.0); Mean Corpuscular Hemoglobin 31.8 pg (27.0-31.0); Mean Corpuscular Volume 97.9 fL (78.0-98.0); Mean Platelet Volume 14.1 fL (7.4-10.4); Platelet Count 91 10x3/uL (130-400); Red Blood Cell (RBC) Count 4.24 mill/uL (4.70-6.10)
[2024-06-25 04:07] LABS: ALT (SGPT) 42 U/L (8-55); AST (SGOT) 37 U/L (5-34); Alkaline Phosphatase 82 U/L (40-110); Anion Gap 11 mmol/L (10-20); BUN (Urea Nitrogen) 17 mg/dL (8.9-20.6); Bilirubin, Total 0.7 mg/dL (0.2-1.2); Calc. Creatinine Clearance 92 mL/min (70-130); Calcium 9.1 mg/dL (7.8-10.44); Carbon Dioxide 21 mmol/L (22-29); Chloride 117 mmol/L (98-107); Estimated GFR 110; Globulin 3.6 g/dL (2.4-3.5); Glucose 127 mg/dL (70-105); Potassium 3.6 mmol/L (3.5-5.1); Protein, Total 6.6 g/dL (6.0-8.3); Sodium 145 mmol/L (136-145)
[2024-06-25 04:07] LABS: Bacteria/HPF None Seen HPF (None Seen); Bilirubin Negative (Negative); Blood, Urine 3+ (Negative); CAUTI Indications for Culture Fever or rigors; Clarity Clear (Clear); Glucose, Urine (Dipstick) Normal (Negative); Ketone, Urine Negative (Negative); Leukocyte 500 Leu/uL (Negative); Nitrite Negative (Negative); Protein, Urine (Dipstick) 30 mg/dL (Neg-Trace); RBC/HPF Greater than 50 HPF (0-3); Specific Gravity, Urine 1.024 (1.002-1.036); Squamous Epithelial None Seen HPF (0-3); Urobilinogen Normal mg/dL (Less than 2); WBC/HPF 21-50 HPF (0-3)
[2024-06-25 04:10] LABS: Urine Culture Reflex Yes Yes
[2024-06-25] MEDS: Lactated Ringer's 1,000 ML IV SCH (05:28)
[2024-06-25] MEDS: Sodium Chloride 0.9% 1,000 ML IV SCH ×2 (05:29→14:49)
[2024-06-25] MEDS ORDERED: Piperacillin/Tazobactam 4.5 GM in Sodium Chloride 0.9% 100 ML IVPB SCH (06:00)
[2024-06-25] MEDS: Piperacillin/Tazobactam 3.375 GM in Sodium Chloride 0.9% 100 ML IVPB SCH (06:06)
[2024-06-25] MEDS: levETIRAcetam 500 mg/5 ml Oral Solution PER TUBE SCH (09:32)
[2024-06-25] MEDS: Famotidine/PF 20 mg/2ml Vial SLOW IVP SCH (09:33)
[2024-06-25] MEDS: Polyethylene Glycol 3350 17 GM Packet PER TUBE SCH (09:33)
[2024-06-25] MEDS: Famotidine 20 MG TAB PER TUBE SCH (09:33)
[2024-06-25] MEDS: Senokot 8.6 MG TAB PER TUBE SCH (09:33)
[2024-06-25] MEDS: Enoxaparin 40 MG (0.4 mL) SYRINGE SC SCH (09:33)
[2024-06-25] MEDS: Baclofen 10 MG TAB PER TUBE SCH (09:33)
[2024-06-25] MEDS: PHENobarbital 32.4 MG TAB PER TUBE SCH (09:53)
[2024-06-25] MEDS ORDERED: Bisacodyl 10 MG SUPP PR PRN (16:46)
[2024-06-26 05:58] LABS: #Basophils Less than 0.03 10x3/uL (0.0-0.2); %Basophils 0.3 % (0.0-1.0); %Eosinophils 1.5 % (0.0-10.0); %Lymphocytes 12.5 % (21.0-51.0); %Monocytes 7.9 % (0.0-10.0); %Neutrophils 77.5 % (42.0-75.0); Hematocrit 40.5 % (42.0-52.0); Hemoglobin 13.4 g/dL (14.0-18.0); Mean Corpuscular HGB CONC 33.1 g/dL (32.0-36.0); Mean Corpuscular Hemoglobin 32.2 pg (27.0-31.0); Mean Corpuscular Volume 97.4 fL (78.0-98.0); Platelet Count 101 10x3/uL (130-400); RBC Distribution Width 11.9 % (11.5-14.5); Red Blood Cell (RBC) Count 4.16 mill/uL (4.70-6.10)
[2024-06-26 06:03] LABS: Anion Gap 12 mmol/L (10-20); BUN (Urea Nitrogen) 11 mg/dL (8.9-20.6); Calc. Creatinine Clearance 108 mL/min (70-130); Calcium 7.9 mg/dL (7.8-10.44); Carbon Dioxide 21 mmol/L (22-29); Chloride 115 mmol/L (98-107); Estimated GFR 112; Glucose 114 mg/dL (70-105); Potassium 2.8 mmol/L (3.5-5.1); Sodium 145 mmol/L (136-145)
[2024-06-26] MEDS ORDERED: Electrolyte Replacement Protocol 1 EACH FS SCH (09:00)
[2024-06-26] MEDS ORDERED: Electrolyte Replacement Protocol FS PRN (09:15)
[2024-06-26 09:46] VITALS: BMI 24.8
[2024-06-26] MEDS: Potassium Chloride 20 MEQ TAB PO SCH (09:54)
[2024-06-26] MEDS: Enoxaparin 30 MG (0.3 mL) SYRINGE SC SCH (09:55)
[2024-06-26] MEDS: Potassium Chloride 20 MEQ in Premix 1 BAG IVPB SCH ×2 (09:55→22:27)
[2024-06-26] MEDS: Teriparatide [Forteo] 2.4 ML Pen.Injctr SC SCH (12:09)
[2024-06-26 16:33] LABS: Potassium 2.8 mmol/L (3.5-5.1)
[2024-06-26] MEDS: Acetaminophen 325 MG TAB PER TUBE PRN (17:09)
[2024-06-26] MEDS: Simethicone 40 MG/0.6 ML Drop 30 ML BOT PER TUBE SCH (17:09)
[2024-06-27 05:15] LABS: Anion Gap 13 mmol/L (10-20); BUN (Urea Nitrogen) 11 mg/dL (8.9-20.6); Calc. Creatinine Clearance 128 mL/min (70-130); Calcium 7.8 mg/dL (7.8-10.44); Carbon Dioxide 20 mmol/L (22-29); Chloride 114 mmol/L (98-107); Estimated GFR 118; Glucose 92 mg/dL (70-105); Potassium 3.5 mmol/L (3.5-5.1); Sodium 143 mmol/L (136-145)
[2024-06-27] MEDS: Enoxaparin 40 MG (0.4 mL) SYRINGE SC SCH (08:10)
[2024-06-27 08:24] VITALS: BP 105/64; TEMP 97.6
[2024-06-27 10:29] VITALS: BMI 24.7
[2024-06-27] MEDS ORDERED: Potassium Chloride 20 MEQ in Premix 1 BAG IVPB SCH (11:30)
[2024-06-27] MEDS: Potassium Bicarbonate/Cit Ac 20 MEQ TAB PER TUBE SCH (12:25)
[2024-06-28] MEDS ORDERED: FLU (Fluarix Triv) TS24-25(6MOS UP)/PF 45 MCG/0.5 ML Syringe IM ONE (09:00)
== END 2024-06-27 12:48 | DRG 853 ==
LOC: ERS 23:41 → SDC/OP 06-25 01:18 → CCU 06-25 02:52 → T4-B 06-25 19:52
PROVIDERS: ADMIT Internal Medicine; ATTEND Family Medicine
PROC: 0T768DZ Dilation of Right Ureter with Intraluminal Device, Via Natural or Artificial Opening Endoscopic (ICD-10-PCS; principal; 2024-06-25)
PROC: 0T9B80Z Drainage of Bladder with Drainage Device, Via Natural or Artificial Opening Endoscopic (ICD-10-PCS; 2024-06-25)
PROC: 3E03329 Introduction of Other Anti-infective into Peripheral Vein, Percutaneous Approach (ICD-10-PCS; 2024-06-25)
DX: A41.9 Sepsis, unspecified organism (principal); G80.0 Spastic quadriplegic cerebral palsy; N39.0 Urinary tract infection, site not specified; N20.2 Calculus of kidney with calculus of ureter; R65.20 Severe sepsis without septic shock; G40.909 Epilepsy, unspecified, not intractable, without status epilepticus; J45.909 Unspecified asthma, uncomplicated; K21.9 Gastro-esophageal reflux disease without esophagitis; Z88.8 Allergy status to other drugs, medicaments and biological substances; I10 Essential (primary) hypertension; G80.9 Cerebral palsy, unspecified
CPT/HCPCS: 36415; 71045; 74420; 80048; 80053; 81001; 83605; 84145; 85025; 87086; 96361; 96374; A4333; C2617; J1650; J2310; J2543; J2704; J3480; J3490; J7030; J7120; Q9967

== ENCOUNTER 2024-08-17 05:57 | Day surgery (SDC) | payer MEDICARE, MEDICAID ==
[2024-08-16 08:35] VITALS: BMI 23.1
[2024-08-17] MEDS ORDERED: Iopamidol 0 ML ONE (06:55)
[2024-08-17] MEDS ORDERED: cefTRIAXone (ROCEPHIN) 1 GM VIAL ONE (07:02)
[2024-08-17] MEDS ORDERED: Dexamethasone 20 MG/5 ML VIAL ONE (07:13)
[2024-08-17] MEDS ORDERED: Ondansetron PF 4 MG/2 ML Vial ONE (07:13)
[2024-08-17] MEDS ORDERED: Lidocaine 1% PF 5 ML VIAL ONE (07:13)
[2024-08-17] MEDS ORDERED: PROPOFOL 20 ML ONE (07:13)
[2024-08-17] MEDS ORDERED: fentaNYL PF 100 MCG/2 ML SYRINGE ONE (07:13)
[2024-08-17] MEDS ORDERED: Midazolam HCl 2 mg/2 ml Vial ONE (07:13)
[2024-08-17] MEDS ORDERED: Rocuronium Bromide 10 MG/ML (10ML VIAL) ONE (07:13)
[2024-08-17] MEDS ORDERED: Glycopyrrolate 0.2 MG/ML 5 ML SYRINGE ONE (07:45)
[2024-08-17] MEDS ORDERED: Oxybutynin 5 MG TAB ONE (08:40)
[2024-08-17] MEDS ORDERED: Phenazopyridine HCl 100 MG TAB ONE (08:40)
== END 2024-08-17 13:47 | disposition home or self-care (01) ==
LOC: SDC 05:57
PROVIDERS: ATTEND Urology
PROC: 0TP98DZ Removal of Intraluminal Device from Ureter, Via Natural or Artificial Opening Endoscopic (ICD-10-PCS; principal; 2024-08-17)
DX: N20.2 Calculus of kidney with calculus of ureter (principal); K21.9 Gastro-esophageal reflux disease without esophagitis; G40.909 Epilepsy, unspecified, not intractable, without status epilepticus; G82.50 Quadriplegia, unspecified; J45.909 Unspecified asthma, uncomplicated; F29 Unspecified psychosis not due to a substance or known physiological condition; Z90.49 Acquired absence of other specified parts of digestive tract; Z98.890 Other specified postprocedural states; Z88.1 Allergy status to other antibiotic agents; Z88.8 Allergy status to other drugs, medicaments and biological substances
CPT/HCPCS: 52351; C1769; J0696; J1100; J2250; J2405; J2704; Q9967